=== PATIENT | female | born 1950 | race Caucasian/White ===

== ENCOUNTER → 2017-03-05 | Outpatient (REF) | payer OTHER, MEDICAID ==
[~2017-03-05] MED LIST: AMIO20TA PO; AMIO400T PO; ATEN25TA PO; BACT800T5 PO; BISA10SU4 PR; CALCCAP6 PO; CALCTAB23 PO; ELIQ5TAB PO; FERR325T3 PO; FLEEENE4 PR; GLIM4TAB PO; GLUC500C5 PO; GLUC500C6 PO; LASI40TA PO; LEVO100T5 PO; LOPE2CA PO; MAGN400T5 PO; MAGN500C PO; METF500T PO; MILKSUS5 PO; MINO50CA27 PO; MULT1TAB8 PO; PROBCAP4 PO; SYNT50TA PO; THERTAB56 PO; TYLE325T5 PO; TYLE500T78 PO; ULTR50TA PO; VITA100041 PO; ZYLO300T4 PO
== END ==
LOC: M LAB REF 16:17
PROVIDERS: ATTEND Surgery
DX: E11.9 Type 2 diabetes mellitus without complications (principal); L89.154 Pressure ulcer of sacral region, stage 4